=== PATIENT | male | born 1970 | race African-American/Black ===

== ENCOUNTER 2019-08-31 21:19 | Emergency (ER) | payer OTHER ==
[~2019-08-31] VITALS: Ht 193 cm; Wt 103.0 kg
[2019-08-31 21:22] VITALS: BP 181/83
== END 2019-08-31 23:48 | disposition left against medical advice (07) ==
LOC: ER 21:19
DX: R10.9 Unspecified abdominal pain (principal); Z53.21 Procedure and treatment not carried out due to patient leaving prior to being seen by health care provider

== ENCOUNTER 2024-09-30 18:05 | Emergency (ER) | payer MEDICAID, OTHER ==
[~2024-09-30] VITALS: Ht 185.4 cm; Wt 77.0 kg
[2024-09-30 18:07] VITALS: O2SAT 100
[2024-09-30 18:37] LABS: HEMATOCRIT. 40.4 % (42.0-52.0); HEMOGLOBIN. 13.2 g/dL (14.0-18.0); MEAN PLATELET VOLUME 7.2 fl (7.4-10.4); PLATELET 371 x1000/uL (130-400); RED BLOOD CELL COUNT 4.57 mill/uL (4.7-6.1); RED CELL DISTRIBUTION WIDTH 17.6 % (11.6-14.6)
[2024-09-30] MEDS: SODIUM CHLORIDE 0.9% 1,000 ML IV ONE (18:43)
[2024-09-30] MEDS: VISCOUS LIDOCAINE 2% 15 ML UDC MM ONE (18:43)
[2024-09-30] MEDS: MAGNESIUM HYDROXIDE 400MG/5ML 30ML UDC PO ONE (18:43)
[2024-09-30] MEDS: ONDANSETRON 4MG ODT PO ONE (18:43)
[2024-09-30] MEDS: FAMOTIDINE 20MG TABLET PO ONE (18:43)
[2024-09-30 18:59] LABS: BAND% 1.0 % (1.0-6.0); EOSINOPHILS % MANUAL 4.0 % (0.0-5.0); LYMPHOCYTES % MANUAL 23.0 % (20.0-50.0); MONOCYTES % MANUAL 3.0 % (2.0-8.0); NEUTROPHILS % MANUAL 69.0 % (45.0-75.0); PLATELET ESTIMATE NORMAL
[2024-09-30 19:29] LABS: CREATININE 1.1 mg/dL (0.6-1.3)
[2024-09-30 19:30] LABS: ASPARTATE AMINOTRANSFERASE 47 IU/L (<34); ETHANOL BLOOD 281 mg/dL (<10); TROPONIN I HIGH SENSITIVITY < 4 ng/L (3.0-53); UREA NITROGEN BLOOD 10 mg/dL (9-23)
[2024-09-30 19:31] LABS: BILIRUBIN DIRECT 0.1 mg/dL (<=3.0)
[2024-09-30 19:32] LABS: BILIRUBIN TOTAL 0.4 mg/dL (0.1-1.0); PROTEIN TOTAL 7.5 g/dL (6.0-8.3)
[2024-09-30] MEDS ORDERED: FAMO-135 MT (19:43)
[2024-09-30] MEDS: MORPHINE SULFATE 4 MG/ML INJ (FOR IV/IM USE) IV ONE (19:58)
[2024-09-30 20:04] VITALS: TEMP 36.8
[2024-09-30 21:11] VITALS: BP 149/98; PULSE 86; RESP 14; O2SAT 99
== END 2024-09-30 21:21 | disposition home or self-care (01) ==
LOC: ER 18:05
DX: R07.89 Other chest pain (principal); F10.129 Alcohol abuse with intoxication, unspecified; J45.909 Unspecified asthma, uncomplicated; F41.9 Anxiety disorder, unspecified; I11.0 Hypertensive heart disease with heart failure; I50.9 Heart failure, unspecified; Z88.0 Allergy status to penicillin; Y90.9 Presence of alcohol in blood, level not specified
CPT/HCPCS: 80076; 80048; 80320; 83690; 85025; 84484; 36415; 71045; 93005; 96361; 96374; 99285; Q0162; J2270; J7030; Z7610; G0480